=== PATIENT | female | born 1985 | race Caucasian/White ===

== ENCOUNTER → 2016-07-24 | Outpatient (CLI) | payer OTHER ==
[~2016-07-24] MED LIST: ACHYD1T PO; AGM875T PO; AMOX-355 PO; CEPH500C PO; DOCU100C37 PO; DOXY-233 PO; FOLI0.4T2 PO; HYDR1TAB86 PO; HYOS0.1217 PO; IBS MED; IBUP-1773 PO; IBUP-1780 PO; MDR10T PO; MTF500T PO; NORG1TAB6; ONDA-42 SL; ONDA-43 PO; OXYC-465 PO; PRD20T PO; PREN1TAB71 PO; TR025C15 TOP; TRAM50TA2 PO; TRM50T PO
--- OUTSIDE RECORDS SUMMARY | 2016-07-24 08:49 | XMS REPORT | Continuity of Care Document ---
Author Author [facility] Organization [facility] Address Unknown Phone Unavailable Care Team Providers Care Production Or Plant Engineer Name Role Phone NO, LOCAL PHYSICIAN PCP Unavailable Insurance Providers Payer Name Policy Number Subscriber Name Relationship [facility] [id number] Maribeth Palmersa L 18 Self / Same As Patient [facility] [id number] Maribeth Palmersa L 18 Self / Same As Patient Advance Directives Directive Response Recorded Date/Time Advance Directives No 12/04/15 7:13pm Health Care Power of Beauty Specialist No 12/04/15 7:13pm Organ Donor No 12/04/15 7:13pm Resuscitation Status Full Code 12/04/15 7:13pm Chief Complaint and Reason for Visit Chief Complaint Bite-Animal/Human/Insect Reason for Visit Dog bite Problems Active Problems Medical Problem Onset Date Status Dog bite Unknown Acute PIH ( induced hypertension) Unknown Acute urinary tract infection Unknown Acute Urinary tract infectious disease Unknown Acute abnormal liver function tests Unknown Acute Medications Current Home Medications Medication Dose Units Route Directions Days/Qty Instructions Start Date Norgestimate-Ethinyl Estradiol 1 Each 28 12/04/15 Amoxicillin/Potassium Clav 1 Each 1 Each Oral Twice A Day 12/04/15 Past Home Medications Medication Directions Ordered Status Amoxicillin/Clavulanate Potassium 1 Tab Tablet, 1 Tab Oral Twice A Day Discontinued Metformin Hcl (Glucophage) 500 Mg Tablet, 1 Each Oral Twice A Day With Meals 08/03/11 Discontinued Medroxyprogesterone Acetate 10 Mg Tab, 1 Each Oral As Directed 08/03/11 Discontinued [Ibs Med] , 08/03/11 Discontinued Acetaminophen/Hydrocodone Bitart 1 Tab Tablet, 1 - 2 Tab Oral Every 3 Hours as needed 12/30/12 Discontinued Cephalexin Monohydrate (Keflex) 500 Mg Capsule, 1 Each Oral Three Times A Day 05/24/13 Discontinued Ondansetron 8 Mg Tab, 8 Mg Oral Every 6 Hours as needed for Nausea/Vomiting 05/24/13 Discontinued Tramadol Hcl 50 Mg Tablet, 50 Mg Oral Every 4HRS as needed for Pain 05/24/13 Discontinued Doxycycline Monohydrate 100 Mg Tablet, 100 Mg Oral Twice A Day 06/09/13 Discontinued Ibuprofen (Motrin) 600 Mg Tablet, 600 Mg Oral Every 6 Hours as needed for Cramps 06/09/13 Discontinued Ondansetron Hcl 4 Mg Tab, 4 Mg Sublingual Every 4HRS 08/10/13 Discontinued Hyoscyamine Sulfate (Levsin) 0.125 Mg/Tab Tab.rapdis, 1-2 Each Oral Every 4HRS as needed for Cramps 08/10/13 Discontinued Tramadol Hcl 50 Mg Tab, 50 Mg Oral Q4-6HR as needed for Pain 08/10/13 Discontinued Acetaminophen/Hydrocodone Bitart (Lortab) 1 Each Tablet, 1-2 Each Oral Q6hr Prn 08/15/13 Discontinued Ibuprofen 800 Mg Tablet, 800 Mg Oral Every 6 Hours 09/04/15 Discontinued Oxycodone Hcl/Acetaminophen 1 Each Tablet, 1-2 Tab Oral Every 4HRS as needed for Pain 09/04/15 Discontinued Docusate Sodium 100 Mg Capsule, 100 Mg Oral Twice A Day 09/04/15 Discontinued Vit/Iron Fumarate/Fa 1 Each Tablet, 1 Each Oral Daily 09/04/15 Discontinued Social History Social History Problem Response Recorded Date/Time Alcohol Use Denies Use 12/04/2015 7:13pm Recreational Drug Use No 12/04/2015 7:13pm Recent Foreign Travel No 08/10/2013 5:42pm Recent Infectious Disease Exposure No 08/10/2013 5:42pm Hospitalization with Isolation Denies 06/11/2013 10:23am Sexually Transmitted Disease No 12/04/2015 7:16pm HIV/AIDS No 12/04/2015 7:16pm Smoking Status Current Everyday Smoker 12/04/2015 7:13pm Do you dip or chew tobacco? No 09/09/2015 9:33pm Type Used Electronic/Vapor 12/04/2015 7:13pm Query Response Start Date Stop Date Smoking Status Current Everyday Smoker Hospital Discharge Instructions No hospital discharge instructions. Plan of Care Discharge Date 12/04/15 7:21pm Disposition 01 HOME, SELF-CARE Condition at Discharge Improved Instructions/Education Provided Animal Bite (ED) Prescriptions See Medication Section Referrals NO,LOCAL PHYSICIAN - Primary Care Physician Additional Instructions/Education 1. Antibiotics as directed 2. Return to ER for any concerns 3. Follow-up with your regular doctor next week All discharge instructions reviewed with patient and/or family. Voiced understanding. Functional Status No functional status results. Allergies, Adverse Reactions, Alerts No known allergies. Immunizations No immunization records. Vital Signs Acute Vital Signs Vital Response Date/Time Temperature (Fahrenheit) 98.4 degrees F (97.6 - 99.5) 12/04/2015 7:13pm Temperature (Calculated Celsius) 36.05676 degrees C (36.4 - 37.5) 12/04/2015 7:13pm Pulse Rate (adult) 82 bpm (60 - 90) 12/04/2015 7:20pm Respiratory Rate 18 bpm (12 - 24) 12/04/2015 7:20pm O2 Sat by Pulse Oximetry 99 % (88 - 100) 12/04/2015 7:20pm Blood Pressure 140/83 mm Hg 12/04/2015 7:20pm Blood Pressure Mean 125 mm Hg 12/04/2015 7:13pm Pain Numeric Pain Scale 0-No Pain 12/04/2015 7:13pm Height (Feet) 5 feet 12/04/2015 7:13pm Height (Inches) 6 inches 12/04/2015 7:13pm Height (Calculated Centimeters) 167.906244 cm 12/04/2015 7:13pm Weight (Pounds) 254 pounds 12/04/2015 7:13pm Weight (Calculated Kilograms) 115.988577 kilograms 12/04/2015 7:13pm Height 5 ft 6 in Weight 254 lb Body Mass Index 41.0 kg/m^2 Results No known relevant diagnostic tests, laboratory data and/or discharge summary. Procedures No known history of procedures. Encounters Encounter Location Arrival/Admit Date Discharge/Depart Date Attending Provider Departed Emergency Room [facility] 12/04/15 6:44pm 12/03 7:21pm ALMA DELIA CROSS APRN Recent Diagnosis
--- NOTE | 2016-07-24 19:24 | Diagnostic Imaging Report ---
Bilateral diagnostic mammogram. INDICATION: Skin thickening focally in the right breast. Right breast pain. This is a baseline study with no comparison exams available. The current study was also evaluated with a Computer Aided Detection (CAD) system. FINDINGS: There are calcified fibroglandular densities in the breasts. The area of concern at the skin thickening site is marked with minimal density corresponding to area seen that is probably correlating to the skin lesion. There is no underlying breast parenchymal mass or suspicious calcifications identified at this location or elsewhere in either breast. IMPRESSION: The lesion in the right breast appears to be skin based with minimal mammographic abnormality and no associated suspicious mass or calcification. Ultrasound evaluation pending. ACR BI-RADS Category 0: Incomplete. (Needs additional imaging evaluation). Result letter will be mailed to the patient. Note: At least 10% of breast cancer is not imaged by mammography. Dictated by: Dictated on workstation # [id number]
--- NOTE | 2016-07-24 21:12 | Diagnostic Imaging Report ---
EXAM: Right breast ultrasound. INDICATION: Right breast pain and skin lesion. FINDINGS: The four quadrants and retroareolar regions were scanned with no underlying lesion seen. There is a focal area of skin color change and thickening in the upper-inner aspect of the right breast with no underlying abnormality seen. IMPRESSION: Negative study. Clinical follow-up recommended. BI-RADS 1. Dictated by: Dictated on workstation # [id number]
== END ==
LOC: RAD 08:46
PROVIDERS: ATTEND Obstetrics & Gynecology
DX: N64.59 Other signs and symptoms in breast (principal)
CPT/HCPCS: 76641; 77066

== ENCOUNTER 2020-07-07 12:11 | Emergency (ER) | payer BC, OTHER ==
[~2020-07-07] VITALS: Ht 172.7 cm; Wt 109.0 kg
[~2020-07-07 12:11] MED LIST changes: -OXYC-465 PO; +OXYC-556 PO
[2020-07-07] MEDS ORDERED: ASPIRIN 81 MG CHEW (CHILDREN'S ASA) PO ONE (12:30)
[2020-07-07 12:36] LABS: BILIRUBIN,URINE NEGATIVE (NEGATIVE); CLARITY,URINE CLEAR; COLOR,URINE YELLOW; GLUCOSE, URINE (UA) NEGATIVE (NEGATIVE); KETONES,URINE NEGATIVE (NEGATIVE); LEUKOCYTE ESTERASE ,URINE 1+ (NEGATIVE); NITRITE,URINE NEGATIVE (NEGATIVE); PROTEIN,URINE NEGATIVE (NEGATIVE)
[2020-07-07 12:42] LABS: BASOPHILS % (AUTO) 0 % (0-10); EOSINOPHILS # (AUTO) 0.1 10^3/uL (0.0-0.3); EOSINOPHILS % (AUTO) 1 % (0-10); HEMATOCRIT 38 % (35-52); HEMOGLOBIN 12.7 g/dL (11.5-16.0); LYMPHOCYTES # (AUTO) 2.5 10^3/uL (1.0-4.0); LYMPHOCYTES % (AUTO) 34 % (12-44); MEAN CORPUSCULAR HEMOGLOBIN 29 pg (25-34); MEAN CORPUSCULAR HGB CONC 33 g/dL (32-36); MEAN CORPUSCULAR VOLUME 87 fL (80-99); MEAN PLATELET VOLUME 10.2 fL (9.0-12.2); MONOCYTES # (AUTO) 0.3 10^3/uL (0.0-1.0); MONOCYTES % (AUTO) 5 % (0-12); NEUTROPHILS # (AUTO) 4.5 10^3/uL (1.8-7.8); NEUTROPHILS % (AUTO) 60 % (42-75); PLATELET COUNT 391 10^3/uL (130-400); WHITE BLOOD COUNT 7.4 10^3/uL (4.3-11.0)
--- NOTE | 2020-07-07 12:43 | Diagnostic Imaging Report ---
EXAMINATION: Chest 1 view HISTORY: Chest pain. Neck pain. Left arm pain. COMPARISON: 08/10/2013. FINDINGS: The lung volumes are normal. No focal consolidation is seen. No large pleural effusion or pneumothorax is seen. The cardiomediastinal silhouette is normal in size and contour. No acute osseous abnormality is seen. IMPRESSION: 1. No acute pleuroparenchymal process. Dictated by: Dictated on workstation # [id number]
[2020-07-07 12:45] LABS: ALBUMIN 4.1 GM/DL (3.2-4.5); CHLORIDE 103 MMOL/L (98-107); POTASSIUM 3.6 MMOL/L (3.6-5.0); SODIUM 138 MMOL/L (135-145)
[2020-07-07 12:46] LABS: CALCIUM 8.8 MG/DL (8.5-10.1)
[2020-07-07 12:47] LABS: BACTERIA,URINE FEW /HPF
[2020-07-07 12:47] LABS: GLUCOSE 117 MG/DL (70-105); TOTAL PROTEIN 7.9 GM/DL (6.4-8.2)
[2020-07-07 12:48] LABS: CARBON DIOXIDE 25 MMOL/L (21-32); PROTHROMBIN TIME PATIENT 13.2 SEC (12.2-14.7)
[2020-07-07 12:49] LABS: BILIRUBIN,TOTAL 0.3 MG/DL (0.1-1.0)
--- NOTE | 2020-07-07 12:49 | ED Chest Pain ---
General Chief Complaint: Chest Pain Stated Complaint: CP,NECK PAIN, L ARM PAIN History of Present Illness Date Seen by Provider: Jul 07, 2020 Time Seen by Provider: 12:12 Initial Comments 35-year-old female presents for chest pain that is been present for approximately 2 hours with some radiation into her jaw and left arm. She reports she has had intermittent chest pain for approximately 7 months but it is never continued for this long. She has no associated nausea, vomiting, or diaphoresis. She denies any shortness of air. She reports having COVID-19 in the summer 2019. She does report having a cough approximately 1 week ago. She has not taken anything for her symptoms. She denies any history of ulcers or GERD. No family history of CAD. She was at work when her symptoms began, she denies any increased stress or emotional problems. The pain can be palpated at mid-sternum, but also feels deeper along the left sternal border. No pain with deep inhalation. Timing/Duration: 1-3 hours Severity/Quality: moderate Location: substernal Radiation: jaw, arms Activities at Onset: none Prior CP/Workup: no prior chest pain ASA po WASTE MACHINE OFFBEARER: No NTG SL WASTE MACHINE OFFBEARER: No Associated Symptoms: denies symptoms Allergies and Home Medications Allergies Coded Allergies: No Known Drug Allergies (Unverified , 11/05/08) Home Medications Amoxicillin/Potassium Clav 1 Each Tablet, 1 EACH PO BID Prescribed by: ALMA DELIA CROSS on 12/04/151915 Nitrofurantoin Monohyd/M-Cryst 100 Mg Capsule, 1 TAB PO BID Prescribed by: JOHNNY ANAYA on 07/07/20 1459 Prednisone 20 Mg Tab, 20 MG PO DAILY Prescribed by: JULIANNA LOPEZ on 12/12/15 2352 Patient Home Medication List Home Medication List Reviewed: Yes Review of Systems Review of Systems Constitutional: no symptoms reported, see HPI EENTM: No Symptoms Reported, See HPI Respiratory: No Symptoms Reported, See HPI; Denies Cough, Denies Shortness of Air Cardiovascular: See HPI, Chest Pain; Denies Edema, Denies Irregular Heart Rate, Denies Lightheadedness, Denies Palpitations, Denies Syncope Gastrointestinal: No Symptoms Reported, See HPI Genitourinary: No Symptoms Reported, See HPI Musculoskeletal: no symptoms reported, see HPI All Other Systems Reviewed Negative Unless Noted: Yes Past Ixemubx-Erveuz-Kkotay Hx Past Med/Social Hx: Reviewed Nursing Past Med/Soc Hx Patient Social History Type Used: Electronic/Vapor Recent Hopitalizations: No Immunizations Up To Date Tetanus Booster (TDap): Less than 5yrs PED Vaccines UTD: No Seasonal Allergies Seasonal Allergies: No Past Medical History Abdominal, Ear Surgery, Gallbladder Reproductive Disorders: No Female Reproductive Disorders: Endometriosis, Polycystic Ovarian Dis Sexually Transmitted Disease: No HIV/AIDS: No Gastroesophageal Reflux Adverse Reaction/Blood Tranf: No Family Medical History Cancer grandparents paternal (pancreatic ) Dementia grandparents paternal (grandmother) Family history: Coronary thrombosis grandparents paternal (grandmother) Family history: Diabetes mellitus grandparents paternal (grandfather) Family history: Hypertension 03 FATHER (last month) Family history: Thyroid disorder grandparents paternal (grandmother.) History of - respiratory disease grandparents paternal (grandmother) Parkinson's disease 09 SISTER (thinks sister) Prostate cancer grandparents paternal (grandfather) Visual impairment grandparents paternal (grandmother blind in both eyes) No Family History of: Abdominal aortic aneurysm Kamuela's disease Alcoholism Aphasia Cancer of colon Cataract Chest pain Congenital heart disease Congestive heart failure Cystic fibrosis Dysphagia Family history: Allergy Family history: Alzheimer's disease Family history: Arthritis Family history: Asthma Family history: Breast disease Family history: Cardiovascular disease Family history: Gastrointestinal disease Family history: Glaucoma Family history: Osteoporosis Headache Hearing loss Heart disease Hereditary disease History of - anemia History of - disorder History of drug abuse Human immunodeficiency virus (HIV) seropositivity Hypercholesterolemia Infertile Kidney disease Malignant neoplasm of lung Myocardial infarction Psychotic disorder Seizure disorder Stroke Tuberculosis Diabetes Physical Exam Vital Signs Vital Signs - First Documented 07/07/20 07/07/20 12:13 15:57 Temp 37.4 Pulse 96 Resp 18 B/P (MAP) 184/114 (137) Pulse Ox 98 O2 Delivery Room Air Capillary Refill : Height, Weight, BMI Height: 5'6" Weight: 254lbs. 0.0oz. 115.272758cf; 43.7 BMI Method:Stated General Appearance: WD/WN, Anxious HEENT: PERRL/EOMI, TMs Normal, Normal ENT Inspection, Pharynx Normal Neck: Full Range of Motion, Normal Inspection, Non Tender, Supple; No Thyromegaly Respiratory: Chest Non Tender, Lungs Clear, Normal Breath Sounds, No Respiratory Distress Cardiovascular: Regular Rate, Rhythm, No Edema, No Murmur, Normal Peripheral Pulses Gastrointestinal: Normal Bowel Sounds, Non Tender, Soft Extremity: Normal Capillary Refill, Normal Inspection, Normal Range of Motion, Non Tender, No Calf Tenderness Neurologic/Psychiatric: Alert, Oriented x3, No Motor/Sensory Deficits, Normal Mood/Affect Skin: Normal Color, Warm/Dry Progress/Results/Core Measures Results/Orders Lab Results Laboratory Tests Test 07/07/20 12:17 07/07/20 12:31 07/07/20 14:54 Range/Units White Blood Count 7.4 4.3-11.0 10^3/uL Red Blood Count 4.39 3.80-5.11 10^6/uL Hemoglobin 12.7 11.5-16.0 g/dL Hematocrit 38 35-52 % Mean Corpuscular Volume 87 80-99 fL Mean Corpuscular Hemoglobin 29 25-34 pg Mean Corpuscular Hemoglobin Concent 33 32-36 g/dL Red Cell Distribution Width 11.9 10.0-14.5 % Platelet Count 391 130-400 10^3/uL Mean Platelet Volume 10.2 9.0-12.2 fL Immature Granulocyte % (Auto) 0 % Neutrophils (%) (Auto) 60 42-75 % Lymphocytes (%) (Auto) 34 12-44 % Monocytes (%) (Auto) 5 0-12 % Eosinophils (%) (Auto) 1 0-10 % Basophils (%) (Auto) 0 0-10 % Neutrophils # (Auto) 4.5 1.8-7.8 10^3/uL Lymphocytes # (Auto) 2.5 1.0-4.0 10^3/uL Monocytes # (Auto) 0.3 0.0-1.0 10^3/uL Eosinophils # (Auto) 0.1 0.0-0.3 10^3/uL Basophils # (Auto) 0.0 0.0-0.1 10^3/uL Immature Granulocyte # (Auto) 0.0 0.0-0.1 10^3/uL Prothrombin Time 13.2 12.2-14.7 SEC INR Comment 1.0 0.8-1.4 Activated Partial Thromboplast Time 30 24-35 SEC Sodium Level 138 135-145 MMOL/L Potassium Level 3.6 3.6-5.0 MMOL/L Chloride Level 103 98-107 MMOL/L Carbon Dioxide Level 25 21-32 MMOL/L Anion Gap 10 5-14 MMOL/L Blood Urea Nitrogen 7 7-18 MG/DL Creatinine 0.86 0.60-1.30 MG/DL Estimat Glomerular Filtration Rate > 60 BUN/Creatinine Ratio 8 Glucose Level 117 H 70-105 MG/DL Calcium Level 8.8 8.5-10.1 MG/DL Corrected Calcium 8.7 8.5-10.1 MG/DL Magnesium Level 1.8 1.6-2.4 MG/DL Total Bilirubin 0.3 0.1-1.0 MG/DL Aspartate Amino Transf (AST/SGOT) 17 5-34 U/L Alanine Aminotransferase (ALT/SGPT) 21 0-55 U/L Alkaline Phosphatase 96 40-136 U/L Myoglobin 26.0 10.0-92.0 NG/ML Troponin I < 0.028 < 0.028 <0.028 NG/ML Total Protein 7.9 6.4-8.2 GM/DL Albumin 4.1 3.2-4.5 GM/DL Thyroid Stimulating Hormone (TSH) 1.70 0.35-4.94 UIU/ML Urine Color YELLOW Urine Clarity CLEAR Urine pH 6.0 5-9 Urine Specific [place] 1.010 L 1.016-1.022 Urine Protein NEGATIVE NEGATIVE Urine Glucose (UA) NEGATIVE NEGATIVE Urine Ketones NEGATIVE NEGATIVE Urine Nitrite NEGATIVE NEGATIVE Urine Bilirubin NEGATIVE NEGATIVE Urine Urobilinogen 0.2 < = 1.0 MG/DL Urine Leukocyte Esterase 1+ H NEGATIVE Urine RBC (Auto) NEGATIVE NEGATIVE Urine RBC NONE /HPF Urine WBC 10-25 H /HPF Urine Squamous Epithelial Cells 5-10 /HPF Urine Crystals NONE /LPF Urine Bacteria FEW H /HPF Urine Casts NONE /LPF Urine Mucus NEGATIVE /LPF Urine Culture Indicated YES My Orders Orders - JOHNNY ANAYA Cbc With Automated Diff (07/07/20 12:25) Magnesium (07/07/20 12:25) Chest 1 View, Ap/Pa Only (07/07/20 12:25) Ekg Tracing (07/07/20 12:25) Comprehensive Metabolic Panel (07/07/20 12:25) Myoglobin Serum (07/07/20 12:25) Protime With Inr (07/07/20 12:25) Partial Thromboplastin Time (07/07/20 12:25) Monitor-Rhythm Ecg Trace Only (07/07/20 12:25) Ed Iv/Invasive Line Start (07/07/20 12:25) Troponin I (07/07/20 12:25) Aspirin Chewable Tablet (Baby Aspirin Ch (07/07/20 12:30) Urine Bedside (07/07/20 12:25) Thyroid Stimulating Hormone (07/07/20 12:25) Ua Culture If Indicated (07/07/20 12:25) Urine Culture (07/07/20 12:31) Ketorolac Injection (Toradol Injection) (07/07/20 13:35) Troponin I (07/07/20 14:46) Medications Given in ED Current Medications Medications Dose Ordered Sig/Ade Route Start Time Stop Time Status Last Admin Dose Admin Aspirin 324 mg ONCE ONCE PO 07/07/20 12:30 07/07/20 12:31 DC 07/07/20 12:48 324 MG Vital Signs/I&O 07/07/20 07/07/20 07/07/20 12:13 13:48 15:57 Temp 37.4 37.4 37.4 Pulse 96 90 Resp 18 18 B/P (MAP) 184/114 (137) 127/77 (137) Pulse Ox 98 O2 Delivery Room Air Room Air Progress Progress Note : Time: 12:12 Progress Note Patient seen and evaluated, will obtain EKG, chest x-ray, labs aspirin 324 mg orally. 1300 Labs WNL, pain unchanged. Will give Toradol 30 mg IV. Will plan to keep patient until 1500 and obtain a second troponin. 1315 UA shows UTI, patient reports chronic history. Last treated in Jan 2020, has seen Dr. Beckham. 1400 patient does report improvement in her pain. Will recheck Troponin at 1500. 1500 No complaints of problems. No chest pain 1530 Repeat troponin neg. Discharge instructions and return precautions reviewed with the patient. All questions answered. Initial ECG Impression Date: Jul 07, 2020 Initial ECG Impression Time: 12:17 Initial ECG Rate: 83 Initial ECG Rhythm: Normal Sinus Initial ECG Intervals: Normal Initial ECG Intervals [place] 160, QRSD 90, QT 368, QTc 433. [place] P 52, QRS 21, T 8. Initial ECG Impression: Normal Initial ECG Comparisson: No Previous ECG Available Diagnostic Imaging Diagonstic Imaging: Xray Plain Films/CT/US/NM/MRI: chest Comments NAME: KATHIA [facility]UTE [facility] REC#: [id number] PT STATUS: REG ER : 1985 PHYSICIAN: JOHNNY ANAYA ADMIT DATE: 07/07/20/ER Draft Date of Exam:07/07/20 CHEST 1 VIEW, AP/PA ONLY EXAMINATION: Chest 1 view HISTORY: Chest pain. Neck pain. Left arm pain. COMPARISON: 08/10/2013. FINDINGS: The lung volumes are normal. No focal consolidation is seen. No large pleural effusion or pneumothorax is seen. The cardiomediastinal silhouette is normal in size and contour. No acute osseous abnormality is seen. IMPRESSION: 1. No acute pleuroparenchymal process. Dictated on workstation # [id number] Dict: 07/07/20 1242 Trans: 07/07/20 1243 [facility] [id number] Interpreted by: RIGO LANIER DO Electronically signed by: Departure Impression Primary Impression: Chest wall pain Additional Impression: UTI (urinary tract infection) Qualified Codes: N30.00 - Acute cystitis without hematuria Disposition: HOME, SELF-CARE Condition: Improved Departure-Patient Inst. Decision time for Depature: 15:30 Referrals: [facility] LATISHA,LOCAL PHYSICIAN (PCP) Primary Care Physician Patient Instructions: Chest Pain That Is Not Caused by the Heart (DC), Urinary Tract Infection, Adult (DC) Add. Discharge Instructions: Alternate between Tylenol 650 mg and ibuprofen 600 mg every 4 hours for pain. Take antibiotic as prescribed. Increase water intake, 16 ounces every 2 hours while awake. Eat 1 cup of fresh blueberries or drink 1 cup of fresh cranberry juice daily. Follow-up with your primary care provider if symptoms are not improving or worsen. Apply warm moist compressions to the area of tenderness for 10 to 15 minutes as needed. Return to the emergency department for new, urgent healthcare needs. All discharge instructions reviewed with patient and/or family. Voiced understanding. Scripts Nitrofurantoin Monohyd/M-Cryst (Macrobid 100 mg Capsule) 100 Mg Capsule 1 TAB PO BID, #14 CAP 0 Refills Prov: JOHNNY ANAYA 07/07/20 JOHNNY ANAYA Jul 07, 2020 12:49
[2020-07-07 12:51] LABS: ALKALINE PHOSPHATASE 96 U/L (40-136); CREATININE SERUM 0.86 MG/DL (0.60-1.30); GFR ESTIMATED > 60
[2020-07-07 12:52] LABS: BUN/CREATININE RATIO 8
[2020-07-07 12:54] LABS: ALANINE AMINOTRANSFERASE 21 U/L (0-55); MAGNESIUM 1.8 MG/DL (1.6-2.4)
[2020-07-07] MEDS ORDERED: KETOROLAC 30 MG/ML VIAL IVP STA (13:35)
[2020-07-07] MEDS ORDERED: NITR-65 PO (14:59)
[2020-07-07 15:57] VITALS: BP 127/77
== END 2020-07-07 15:57 | disposition home or self-care (01) ==
LOC: EDUNIT# 12:11 → ER 12:13
DX: R07.89 Other chest pain (principal); N39.0 Urinary tract infection, site not specified; F41.9 Anxiety disorder, unspecified; Z82.49 Family history of ischemic heart disease and other diseases of the circulatory system; Z80.42 Family history of malignant neoplasm of prostate; Z83.3 Family history of diabetes mellitus; Z80.0 Family history of malignant neoplasm of digestive organs; Z79.52 Long term (current) use of systemic steroids
CPT/HCPCS: 36415; 71045; 80053; 81000; 83735; 83874; 84443; 84484; 84703; 85025; 85610; 85730; 87077; 87088; 93005; 93041

== ENCOUNTER 2020-12-10 05:37 | Outpatient (CLI) | payer BC ==
[~2020-12-10] VITALS: Ht 167.7 cm; Wt 113.6 kg
[~2020-12-10 05:37] MED LIST changes: +NITR-65 PO
== END 2020-12-10 15:39 | disposition home or self-care (01) ==
LOC: PREOP 05:37
PROVIDERS: ATTEND Obstetrics & Gynecology
DX: Z01.818 Encounter for other preprocedural examination (principal)

== ENCOUNTER 2020-12-17 07:23 | Day surgery (SDC) | payer BC ==
[2020-12-17] VITALS (14 sets, daily range): BP systolic 108–150; BP diastolic 56–87
[~2020-12-17] VITALS: Ht 170.2 cm; Wt 85.5 kg
[2020-12-17] MEDS: LACTATED RINGERS 1,000 ML IV PRN ×2 (07:45→09:20)
[2020-12-17] MEDS ORDERED: ceFAZolin INJECTION 1,000 MG in WATER (STERILE) FOR INJECTION 10 ML IV ONE (07:45)
[2020-12-17] MEDS ORDERED: LIDOCAINE/EPI 1%-1:100,000 (XYLOCAINE) 20ML ONE (07:51)
[2020-12-17] MEDS ORDERED: ESTRADIOL VAGINAL CREAM 42.5 GM (ESTRACE) VG ONE (07:51)
--- NOTE | 2020-12-17 08:11 | Progress Note-Pre Operative ---
Pre-Operative Progress Note H&P Reviewed The H&P was reviewed, patient examined and no changes noted. Date Seen by Provider: Dec 17, 2020 Time Seen by Provider: 08:11 Date H&P Reviewed: Dec 17, 2020 Time H&P Reviewed: 08:11 Pre-Operative Diagnosis: MARIA ALEJANDRA WILLS MD Dec 17, 2020 08:11
[2020-12-17] MEDS ORDERED: ONDANSETRON 4 MG/2 ML (SDV) Z0FRAN ONE (08:20)
[2020-12-17] MEDS ORDERED: LIDOCAINE PF 2% 5 ML (XYLOCAINE) VIAL ONE (08:20)
[2020-12-17] MEDS ORDERED: SEVOFLURANE (ULTANE) 15 ML INHAL SOLN ONE ×3 (08:20→10:30)
[2020-12-17] MEDS ORDERED: ROCURONIUM 10 MG/ML 5 ML SYRINGE IV ONE ×2 (08:20→10:15)
[2020-12-17] MEDS ORDERED: fentaNYL INJ 100 MCG/2 ML AMP ONE ×3 (08:20→12:29)
[2020-12-17] MEDS ORDERED: proPOfol 200 MG/20 ML (DIPRIVAN) VIAL IV ONE (08:20)
[2020-12-17] MEDS ORDERED: MIDAZOLAM 2 MG/2 ML (VERSED) VIAL ONE (08:20)
--- NOTE | 2020-12-17 08:23 | Progress Note-Pre Operative ---
Pre-Operative Progress Note H&P Reviewed The H&P was reviewed, patient examined and no changes noted. Date Seen by Provider: Dec 17, 2020 Time Seen by Provider: 08:22 Date H&P Reviewed: Dec 17, 2020 Time H&P Reviewed: 08:22 Pre-Operative Diagnosis: uterovaginal prolapse / jing / menorrhagia GIGI MURGUIA MD Dec 17, 2020 08:23
[2020-12-17 08:24] LABS: BASOPHILS % (AUTO) 0 % (0-10); EOSINOPHILS % (AUTO) 0 % (0-10); HEMATOCRIT 40 % (35-52); HEMOGLOBIN 13.5 g/dL (11.5-16.0); LYMPHOCYTES # (AUTO) 2.5 10^3/uL (1.0-4.0); LYMPHOCYTES % (AUTO) 29 % (12-44); MEAN CORPUSCULAR HEMOGLOBIN 29 pg (25-34); MEAN CORPUSCULAR HGB CONC 33 g/dL (32-36); MEAN CORPUSCULAR VOLUME 87 fL (80-99); MEAN PLATELET VOLUME 10.1 fL (9.0-12.2); MONOCYTES # (AUTO) 0.6 10^3/uL (0.0-1.0); MONOCYTES % (AUTO) 6 % (0-12); NEUTROPHILS # (AUTO) 5.6 10^3/uL (1.8-7.8); NEUTROPHILS % (AUTO) 64 % (42-75); PLATELET COUNT 376 10^3/uL (130-400); WHITE BLOOD COUNT 8.7 10^3/uL (4.3-11.0)
--- NOTE | 2020-12-17 08:29 | Progress Note-Post Operative ---
Post-Operative Progess Note Surgeon (s)/Manager Personnel Selection (s) Surgeon GIGI MURGUIA MD Manager Personnel Selection: Shireen Pre-Operative Diagnosis uterovaginal prolapse / jing / menorrhagia Post-Operative Diagnosis Same with pathology pending Procedure & Operative Findings Date of Procedure 12/17/20 Procedure Performed/Findings TLH with bilateral salpingectomy and anterior posterior vaginal repairs with enterocele repair and with Dr. Pappas performing pubovaginal sling and cystoscopy Anesthesia Type GETA Estimated Blood Loss Estimated blood loss (mL): 150cc Specimens/Packing Specimens Removed Uterus and fallopian tubes Packing: Kerlix gauze in the vagina GIGI MURGUIA MD Dec 17, 2020 08:29
[2020-12-17] MEDS ORDERED: fentaNYL INJ 100 MCG/2 ML AMP IVP PRN (08:30)
[2020-12-17] MEDS ORDERED: ESTROGENS CONJ INJECTION 25 MG in WATER (STERILE) FOR INJECTION 5 ML IV ONE (08:30)
[2020-12-17] MEDS ORDERED: ONDANSETRON 4 MG/2 ML (SDV) Z0FRAN IVP PRN ×2 (08:30)
[2020-12-17] MEDS ORDERED: NALOXONE 0.4 MG/ML 1 ML (NARCAN) VIAL IV PRN (08:30)
[2020-12-17] MEDS ORDERED: PROMETHAZINE INJ 25 MG/ML (PHENERGAN) AMP IM PRN (08:30)
[2020-12-17] MEDS ORDERED: BENZOCAINE/MENTHOL (DERMOPLAST) 56 ML CAN TP PRN (08:30)
[2020-12-17] MEDS ORDERED: OXYC1TAB87 PO (08:32)
[2020-12-17] MEDS ORDERED: DOCU-143 PO (08:32)
[2020-12-17] MEDS ORDERED: IBUP-1780 PO (08:32)
--- NOTE | 2020-12-17 08:34 | Discharge Inst-Surgical ---
Discharge Inst-Surgical Depart Medication/Instructions New, Converted or Re-Newed RX: Transmitted to Pharmacy Consults/Follow Up Patient Instructions: As directed Orders & Referrals Follow Up Appt: Return to clinic on Sunday, December 20, 2020 at 9:30 AM for staple removal Call to make follow up appt. for patient in 4 weeks. Activity: Rest for 24 hours, than as tolerated. Wound Care: May remove Band-Aid tomorrow. Replace as desired. Keep incisions clean and dry. Wash daily with soap and water. Diet: As tolerated shower or tub bathe as desired. No driving for 24 hours, no alcoholic beverages for 24 hours, and nothing per vagina (no tampons, douching, or intercourse) for 8 weeks. Patient to return to the clinic as soon as possible for: Temperature greater than 101F, Severe Pain, Foul discharge from incision or vagina, Excessive Bleeding (more than a period). Activity Activity as Tolerated: No Diet Discharge Diet: No Restrictions GIGI MURGUIA MD Dec 17, 2020 08:34
[2020-12-17] MEDS ORDERED: GLYCOPYRROLATE 0.2 MG/ML (ROBINUL) 2 ML VIAL ONE ×2 (08:59→10:15)
[2020-12-17] MEDS ORDERED: HYDROmorphone 2 MG/ML VIAL (DILAUDID) ONE (08:59)
[2020-12-17] MEDS: DOCUSATE SODIUM 100 MG (COLACE) CAP PO SCH ×2 (09:00→19:53)
[2020-12-17] MEDS ORDERED: NEOSTIGMINE 3 MG/3 ML VIAL ONE (10:15)
[2020-12-17] MEDS ORDERED: KETOROLAC 30 MG/ML VIAL ONE (10:16)
--- NOTE | 2020-12-17 10:25 | Progress Note-Post Operative ---
Post-Operative Progess Note Surgeon (s)/Utilization Management Um Nurse (s) Surgeon MARIA ALEJANDRA FERRELL MD Utilization Management Um Nurse: BLADE Pre-Operative Diagnosis CHELITA Post-Operative Diagnosis SAME Procedure & Operative Findings Date of Procedure 12/17/20 Procedure Performed/Findings PVS AND CYSTOSCOPY Anesthesia Type GENERAL Estimated Blood Loss Estimated blood loss (mL): NEGLIGIBLE Specimens/Packing Specimens Removed NONE Packing: Kerlix gauze in the vagina MARIA ALEJANDRA FERRELL MD Dec 17, 2020 10:25
[2020-12-17] MEDS: KETOROLAC 30 MG/ML VIAL IVP SCH ×3 (10:45→23:58)
[2020-12-17] MEDS ORDERED: WATER (STERILE) FOR INJECTION 10 ML ONE (11:20)
[2020-12-17] MEDS ORDERED: ESTROGENS CONJ IV 25 MG/5 ML (PREMARIN) VIAL ONE (11:20)
[2020-12-17] MEDS ORDERED: D5 LR IV SOLUTION 1,000 ML IV ONE (12:15)
[2020-12-17] MEDS: D5 LR IV SOLUTION 1,000 ML IV SCH ×2 (12:19→19:54)
--- NOTE | 2020-12-17 14:33 | OPERATIVE REPORT ---
DATE OF SERVICE: 12/17/2020 PREOPERATIVE DIAGNOSIS: On my part, stress urinary incontinence. POSTOPERATIVE DIAGNOSIS: On my part, stress urinary incontinence. OPERATION PERFORMED: Pubovaginal sling and cystoscopy. SURGEON: Maria Alejandra Ferrell MD EVENT DECORATOR: Felipe Luna MD ANESTHESIA: General. COMPLICATIONS: None. DESCRIPTION OF PROCEDURE: After Dr. Luna performed the first part of his surgery that he will dictate, I reinserted the Rice catheter draining clear urine. I passed the Desara device on both sides using the described technique. The sling was sitting nicely under the mid urethra with no twisting, no tension, passage of a curved hemostat easily between it and the underlying tissue. I removed the Rice catheter and performed cystoscopy to confirm the integrity of the bladder, ureters and urethra with no foreign body and presence of the sling under the mid urethra. I left the bladder half full to perform a manual Valsalva maneuver that was negative. I reinserted the Rice catheter draining clear fluid. Estimated blood loss on my part negligible and Dr. Luna proceeded with the rest of his surgery that he will dictate. Job ID: [id number] DocumentID: [id number] Dictated Date: 12/17/2020 10:27:07 Director Patient Accounting Date: 12/17/2020 14:32:36 Dictated By: MARIA ALEJANDRA FERRELL MD
--- NOTE | 2020-12-17 15:48 | OPERATIVE REPORT ---
DATE OF SERVICE: 12/17/2020 PREOPERATIVE DIAGNOSES: Dysfunctional uterine bleeding, uterovaginal prolapse and stress urinary incontinence. POSTOPERATIVE DIAGNOSES: Dysfunctional uterine bleeding, uterovaginal prolapse and stress urinary incontinence. OPERATIVE PROCEDURE: Total laparoscopic hysterectomy with bilateral salpingectomies as well as anterior and posterior vaginal repairs with enterocele repair and with pubovaginal sling and cystoscopy done by Dr. Beckham. OPERATIVE DESCRIPTION: With the patient in supine position under satisfactory general anesthesia, she was repositioned in the dorsal lithotomy position in the [facility] and prepped and draped in the usual fashion for abdominal and vaginal surgery. Weighted speculum placed in posterior fornix of vagina, cervix exposed and grasped anteriorly with single tooth tenaculum. Uterus was sounded to 14 cm with uterine sound. Cervix was then serially dilated with Edison dilators to accommodate a China II manipulator, which was placed using a 6 mm x 8 cm uterine probe and a 13 mm colpotomy ring. Sutures of #1 Vicryl placed at 3 and 9 o'clock position of the cervix to affix the uterus to the manipulator. Rice catheter was placed in the urinary bladder. Tenaculum and speculum were removed from the vagina. The patient was brought in low dorsal lithotomy position. A 12 mm incision was made 12 cm superior to the umbilicus, an attempt was made to place the Veress needle via that was unsuccessful. At second attempt, placed the Veress needle properly and correct placement confirmed with water drop test and the abdomen was insufflated with 2.4 liters of carbon dioxide. Veress needle was removed, and attempt was made to place a 12 mm port that was unsuccessful, so a 5 mm port was placed in the left upper quadrant near Antoine's point and under direct vision, ports of 8 mm were placed through this incisions of 8 cm lateral to the umbilicus at a level approximately 3 cm above the umbilicus. The 12 mm port was placed also under direct vision. The patient was placed in Trendelenburg allowing the bowel was spill out of the pelvis. The da Tod column was advanced on the patient and docked and operative instrument placed in right and left lateral ports and I retired to the da Tod console. At the console using a vessel sealer on the right and bipolar fenestrated grasper on the left, the pelvis was first examined. Both ovaries were normal appearing as were the fallopian tubes. The uterus was somewhat mottled in appearance and boggy, but otherwise normal. The appendix was identified. It was a normal vermiform appendix. There was no abnormal-appearing pathology in the pelvis. The procedure was initiated by raising the right fallopian tube clamping, cauterizing and dividing the mesosalpinx with the vessel sealer. Continued across to the uteroovarian pedicle was clamped, cauterized and divided as well and then dissection was carried across the round ligament down the broad ligament onto the cardinal ligament. Same procedure performed on the left, thus allowing for eventual removal of both fallopian tubes with the uterus. The anterior lower uterine peritoneum was exposed using a monopolar shear on the right. The peritoneum was divided. The bladder was carefully dissected down off the lower uterine segment and colpotomy incision was initiated 12 o'clock position onto the colpotomy ring. That incision was continued circumferentially until the entire colpotomy ring was exposed. The uterus with tubes attached was extracted through the vagina. Vaginal cuff was closed with a single suture V-Loc barbed suture starting from the right angle and continuing across to the left, taking care to ensure hemostasis, an inclusion of the uterine vessel pedicles in the process. The bladder peritoneum was brought back down onto the vaginal cuff with the last two stitches. The needle was removed. The pelvis was examined for hemostasis. Both ureters had been seemed to peristalse before initiating procedure and during the procedure and again now. The procedure of a laparoscopic cholecystectomy procedure at this point was terminated. The operative instruments removed under direct vision as were the ports. The abdomen was evacuated with insufflating gas in the process. The skin incisions were closed with jose. The fascia at the supraumbilical incision was closed with [id number] suture of 2-0 Vicryl. The patient was repositioned in the dorsal lithotomy position for the vaginal portion of the surgery. Anterior repair was affected by placing Jodi clamps on the anterior vaginal wall near the midline the vaginal wall was opened with Metzenbaum scissors. That opening was continued to approximately a centimeter from the urethral meatus and almost to the apex of the vagina. The bladder wall was carefully dissected off the muscularis of the vagina back to the pubic rami bilaterally digitally. Sutures of #2-0 Vicryl were used to plicate the endopelvic fascia and bladder wall, elevating the bladder and lengthening the urethra. At this point, Dr. Beckham assumed care of the patient. I remained to assist. Dr. Beckham performed a pubovaginal sling and cystoscopy, he did confirm efflux from both ureters. On completion of Dr. Beckham's portion of the procedure, I resumed care of the patient. Redundant anterior vaginal muscularis mucosa was now removed sharply. Vaginal wall was closed with running locked 3-0 Vicryl Rapide. Good support was evident and good hemostasis was evident as well. Posterior repair was now performed by placing Jodi clamps on the perineum and hymenal ring at 5 and 7 o'clock position, an inverted triangle of skin was removed from the perineal body and upright triangle from the posterior vaginal floor. The rectovaginal space was entered sharply and dissected bluntly to the apex of the vagina. There was a small enterocele. This was reduced and plicated with a 2-0 Vicryl pursestring suture and now additional sutures of 2-0 Vicryl were used to obliterate the rectovaginal space. The perineal body was restored with sutures of 2-0 Vicryl as well. Redundant posterior vaginal muscularis mucosa was removed sharply. Vaginal wall was closed with running locked suture of 3-0 Vicryl Rapide, that closure was continued past the hymenal ring and back down onto the perineal body then back up subcutaneous to the hymenal ring where the suture was tied. The vagina was examined for hemostasis, which was complete. Good support was evident. Rice catheter was draining clear yellow urine. The vagina was now filled with Estrace vaginal cream and a pack of Kerlix gauze was placed. Digital rectal exam confirmed no stricture or stenosis of the rectum and no sutures into or through the rectal mucosa. Sponge and needle counts were correct. Blood loss was around 150 mL. The patient tolerated the procedure well and was uneventfully awakened from her general anesthesia and transferred to recovery room in stable condition. Job ID: [id number] DocumentID: [id number] Dictated Date: 12/17/2020 10:47:43 Employment Legal Assistant Date: 12/17/2020 15:48:17 Dictated By: GIGI MURGUIA MD
[2020-12-17] MEDS: oxyCODONE/APAP 5/325MG (PERCOCET 5) TABLET PO PRN (18:27)
[2020-12-18 00:16] VITALS: BP 122/70
[2020-12-18] MEDS: oxyCODONE/APAP 5/325MG (PERCOCET 5) TABLET PO PRN ×2 (02:07→10:07)
[2020-12-18] MEDS: D5 LR IV SOLUTION 1,000 ML IV SCH (03:16)
[2020-12-18 04:55] VITALS: BP 128/61
[2020-12-18] MEDS: KETOROLAC 30 MG/ML VIAL IVP SCH (06:12)
[2020-12-18 07:15] VITALS: BP 147/68
--- NOTE | 2020-12-18 08:42 | Progress Note ---
Standard Progress Note Progress Notes/Assess & Plan Date Seen by a Provider: Dec 18, 2020 Time Seen by a Provider: 08:40 Progress/Assessment & Plan This patient is without complaint. She is ambulating, voiding, tolerating oral intake well and has good pain control. Vital Signs Date Time Temp Pulse Resp B/P (MAP) Pulse Ox O2 Delivery O2 Flow Rate FiO2 12/18/20 04:55 36.2 46 16 128/61 (83) 98 Room Air 12/18/20 00:16 36.3 51 16 122/70 (87) 95 Room Air 12/17/20 19:55 36.4 82 16 112/58 (76) 95 Room Air 12/17/20 17:15 36.6 62 18 113/57 (75) 96 Room Air 12/17/20 15:45 36.2 62 18 108/56 (73) 97 Room Air 12/17/20 13:10 36.5 75 18 126/68 (87) 97 Room Air 12/17/20 12:30 54 16 128/70 (89) 97 Room Air 12/17/20 12:00 36.6 73 16 133/74 (93) 97 Room Air 12/17/20 11:50 Room Air 12/17/20 11:50 36.2 18 126/85 (99) 98 Room Air 12/17/20 11:40 18 144/82 (102) 98 Room Air 12/17/20 11:40 Room Air 12/17/20 11:33 OxyMask 2 12/17/20 11:30 18 123/83 (96) 100 OxyMask 2 12/17/20 11:27 OxyMask 4 12/17/20 11:20 18 143/84 (103) 100 OxyMask 6 12/17/20 11:17 OxyMask 6 12/17/20 11:10 18 150/85 (106) 100 OxyMask 6 12/17/20 11:10 OxyMask 6 12/17/20 11:00 18 148/84 (105) 100 OxyMask 6 12/17/20 10:55 36.4 16 138/75 (96) 97 OxyMask 6 12/17/20 10:55 OxyMask 6 I & O 12/18/20 07:00 Intake Total 6220 ml Output Total 2700 ml Balance 3520 ml Vital signs are stable. Patient is afebrile. The abdomen is benign. The surgical incision dressings are clean and dry Extremities show no clubbing cyanosis. There is no Homans' sign. Assessment and plan Postoperative day #1 doing well plan is for discharge home with follow-up in clinic Final Diagnosis Menorrhagia/uterovaginal prolapse/stress urinary incontinence GIGI MURGUIA MD Dec 18, 2020 08:42
[2020-12-18] MEDS ORDERED: DOCUSATE SODIUM 100 MG (COLACE) CAP PO SCH (09:00)
[2020-12-18] MEDS ORDERED: IBUPROFEN 800 MG (MOTRIN) TAB PO ONE (09:59)
[2020-12-18] MEDS: DOCUSATE SODIUM 100 MG (COLACE) CAP PO SCH (10:07)
[2020-12-18] MEDS ORDERED: CIPR-226 PO (10:38)
--- NOTE | 2020-12-18 13:31 | Anesthesia-General Post-Op ---
General Patient Condition Mental Status/LOC: Same as Preop Cardiovascular: Satisfactory Nausea/Vomiting: Absent Respiratory: Satisfactory Pain: Controlled Complications: Absent Post Op Complications Complications None Follow Up Care/Instructions Patient Instructions None needed. Anesthesia/Patient Condition Patient Condition Patient is doing well, no complaints, stable vital signs, no apparent adverse anesthesia problems. No complications reported per nursing. KELLIE ANSARI CRNA Dec 18, 2020 13:31
[2020-12-22] MEDS ORDERED: IBUPROFEN 800 MG (MOTRIN) TAB PO SCH (12:00)
== END 2020-12-18 11:30 | disposition home or self-care (01) ==
LOC: SDC 07:23 → WS 11:50 → SDC 12-18 11:30
PROVIDERS: ATTEND Obstetrics & Gynecology
DX: N93.8 Other specified abnormal uterine and vaginal bleeding (principal); N81.4 Uterovaginal prolapse, unspecified; N39.3 Stress incontinence (female) (male); N92.1 Excessive and frequent menstruation with irregular cycle; N80.0 Endometriosis of uterus; N81.2 Incomplete uterovaginal prolapse; N72 Inflammatory disease of cervix uteri; N83.8 Other noninflammatory disorders of ovary, fallopian tube and broad ligament; E66.9 Obesity, unspecified; K21.9 Gastro-esophageal reflux disease without esophagitis; F17.210 Nicotine dependence, cigarettes, uncomplicated; Z79.899 Other long term (current) drug therapy; Z83.3 Family history of diabetes mellitus
CPT/HCPCS: 57265; 57288; 58571; 84703; 85025; 86850; 86900; 86901; 87081; C1771; 36415